=== PATIENT | female | born 1970 | race Caucasian/White ===

== ENCOUNTER → 2017-10-02 13:12 | Outpatient (CLI) | payer OTHER, SELFPAY ==
--- NOTE | 2017-10-02 14:15 | MR_ITS ---
MR hand RT wo con Ordering Physician: Johnnie Sullivan Patient Age: 47 years: Female HISTORY: ITS.REASON: RIGHT HAND AND WRIST PAIN, SCAPHOID FX Pain radiates up arm ulnar side of the hand and wrist when turning hand patient will have pain that shoots up into the elbow fourth and fifth digit pain. Pain fourth digit. TECHNIQUE: Multiplanar multisequence imaging 1.5 [facility] MR COMPARISON :None FINDINGS Fourth finger. Abnormal soft tissue edema and swelling at the fourth finger most evident dorsal but also seen anteriorly.. This MR study was for the entire hand and provides overview of this fourth finger without optimized detail. However the flexor tendon appears intact. The extensor tendon dorsal to seem to be intact. There is soft tissue swelling and edema throughout the fourth finger which is most evident overlying the dorsal aspect of the overlying the dorsal expansion.. This edema most evident dorsal to the level of the PIP joint & diminished seen distal to this point. Certainly plain film correlation be helpful. On MRI see notable joint pathology or erosions . Only possible mild degenerative narrowing at this PIP. Unimpressive. I maintain seem to be related to more superficial soft tissues and edema. At this fourth finger.. STIR images show no discrete signal abnormality within the proximal phalanx fourth finger but there is upper normal T2 signal here. Normal T1 signal proximal phalanx fourth finger. I would note that on this study there is fluid that tracks along the flexor tendon towards the distal aspect of the carpal tunnel as nicely seen on axial STIR images 30-25. . In with this appears to be some mild inflammation a likely towards the anterior aspect of the carpal tunnel throughout on this more sensitive STIR sequence. Other carpal tunnel findings clinically? (*These STIR images sequence are more sensitive to fluid then T2 weighted axial wrist sequence images set previously reported.) Fifth finger. Only question subtle soft tissue edema here most evident distally.. Equivocal. Field inhomogeneity may accentuate signal here at distal finger as well = IMPRESSION====== 1. Soft tissue edema and swelling at the fourth finger. This primarily involves superficial soft tissues & slightly more evident dorsal than anterior and fourth finger.. 2. With this would also note minimal fluid surrounding course of the flexor tendon fourth finger & through the hand which extends proximally to the carpal tunnel. This suggestive of possible minimal inflammation of this tendon/tendon sheath to the level of the carpal carpal tunnel. The tendon itself with normal signal in size leading to the fourth finger. (Technical note. I would note that this hand image set includes STIR images more sensitive to fluid which better demonstrates this minimal fluid surrounding fourth finger flexor tendon.) 3. Only scant soft tissue edema edema question towards the fifth finger, most suspect distal fifth finger. However This appearance at fifth finger exaggerated by Field inhomogeneity
--- NOTE | 2017-10-02 14:15 | MR_ITS ---
MR wrist RT wo con Ordering Physician: Johnnie Sullivan Patient Age: 47 years: Female HISTORY: ITS.REASON: RIGHT HAND AND WRIST PAIN, SCAPHOID FX Pain at wrist right hand and right wrist pain. Suspect right wrist scaphoid fracture. Pain radiates to elbow. Ulnar sided hand and wrist pain with turning hand pain shoots to elbow fourth and fifth digits numb. Pain fourth digit. Symptoms 3 weeks. TECHNIQUE: Multiplanar multisequence imaging on 1.5 [facility] MR. COMPARISON :No previous studies for comparison FINDINGS No plain films are available for comparison. The scaphoid demonstrates normal signal. No evidence of scaphoid fracture Scapholunate ligament appears intact with normal relationships here. The radioscaphoid joint appears well-maintained as are the other intercarpal joints.q. Normal carpal relationships. Notable Subchondral cystic feature is seen at the anterior margin of proximal capitate.l this measures 5.5 mm length x 2.5 mm.. Triangular fibrocartilage appears intact. Question some scant fluid adjacent to the distal most ulna on sagittal image 15, 14 but I see no discrete fracture here. If raising it may be slight ulnar minus variation at the wrist. Plain film correlation be helpful in this regard for overview. The ulnar styloid I believe is intact. Modest but seemingly adequate volume carpal tunnel but no fluid nor inflammatory changes are appreciated at the carpal tunnel. The hook hamate is intact. The median nerve with no significant increased signal appreciable . The course of the ulnar nerve shows no discrete findings on this noncontrast study No tendon enlargement nor definitive tendinopathy appreciated wrist on the axial images evident either. There is some minimal increased signal anterior to the distal radius and sagittal image 9, & 8 and coronal slice 8 but this is in right in the region of the radial artery and vein and thus I believe to the vascular flow signal rather than a small ganglion after reviewing all sequences IMPRESSION======== . 1. Scaphoid intact normal signal no fracture evident. Carpals appear intact. With satisfactory relationships. 2. Suggestion Mild Ulnar minus variant at the wrist on these MR images.. Plain film correlation would be helpful for overview in this regard.. [place] fibrocartilage just distal to this area intact with generous thickness which may reflect the ulnar minus variation. Only question some trace fluid surrounding distal end of ulna but no fracture or disruption here.. Ulnar styloid itself appears intact 3..history states ulnar sided pain.: Ulnar nerve region and & course of ulnar nerve unremarkable 4. Incidental subchondral cysts. Nonspecific but may reflect early early degenerative changes. Most evident measuring 5.5 x 2.5 mm at proximal anterior capitate.. .Another Tiny 3 mm mm subchondral cyst at the anterior margin of lunate
== END ==
PROVIDERS: Visit Provider Orthopaedic Surgery
DX: S62.001A Unspecified fracture of navicular [scaphoid] bone of right wrist, initial encounter for closed fracture (principal); M25.531 Pain in right wrist; M79.641 Pain in right hand
CPT/HCPCS: 73218; 73221